=== PATIENT | female | born 1960 | race Caucasian/White ===

== ENCOUNTER 2020-08-14 14:23 | Emergency (ER) | payer BC, SELFPAY ==
[2020-08-14 14:35] VITALS: BP 136/71; PULSE 69; RESP 20; O2SAT 99; BMI 33.8
--- NOTE | 2020-08-14 14:43 | HMH.EDUTC ---
[facility] [place] Disposition Clinical Impression: Viral syndrome Disposition: Home, Self-Care Condition on Discharge: Good Instructions: Preventing the Spread of Coronavirus Discharge Instructions Additional Instructions: Drink plenty of fluids. Take tylenol for pain or fever. Take the medications as directed. Follow up with your regular doctor. GO TO THE ER FOR ANY WORSENING SYMPTOMS The cough medication (promethazine dm) will make you drowsy, so don't drive or operate heavy machinery after taking it. Prescriptions: Promethazine/Dextromethorphan [Promethazine-Dm Syrup] 5 ml PO Q6HP PRN #240 syrup PRN Reason: Cough Transmission Status: Re[id number] Fluconazole [Diflucan 150mg tab] 150 mg PO ONCE #1 tab Transmission Status: Re[facility] by [id number] Azithromycin [Z-Donta 250mg Tab*] 250 mg PO UD DOSE PK #6 tab Transmission Status: Received by [id number] Referrals: Chapis Pace [Primary Care Provider] - Forms: Work/School Release Time of Disposition: 14:55 Medical Decision Making - Medical Records Medical records reviewed: No: I reviewed the patient's medical records. - Vic Inquiry Pt receiving controlled substance: No Vital Signs: 08/14/20 14:35 08/14/20 15:12 Temperature 98.1 F Temperature Source Oral Pulse Rate 69 Pulse Rate [Radial] 69 Respiratory Rate 20 20 Blood Pressure 136/71 Blood Pressure [Right Arm] 136/71 Blood Pressure Mean [Right Arm] 92 Blood Pressure Source Automatic Cuff Blood Pressure Source [Right Arm] Automatic Cuff Blood Pressure Position Sitting Blood Pressure Position [Right Arm] Sitting 02 Sat by Pulse Oximetry 99 Oxygen Delivery Method Room Air Room Air - Lab Data Lab Results 08/14/20 14:36: Strep Scn Rapid Clinic Negative 08/14/20 14:40: Chlamy pneumoniae PCR Not detected, Adenovirus (PCR) Not detected, B. pertussis DNA (PCR) Not detected, Coronavirus OC43 (PCR) Not detected, Coronavirus HKU1 (PCR) Not detected, Coronavirus 229E (PCR) Not detected, SARS-CoV-2 (PCR) Not detected, Coronavirus NL63 (PCR) Not detected, Human Metapneumovir PCR Not detected, Influenza A (H1) PCR Not detected, Influ A (H1N1/09) PCR Not detected, Influenza A (H3) PCR Not detected, Influenza Type A (PCR) Not detected, Influenza Type B (PCR) Not detected, M. pneumoniae (PCR) Not detected, Parainfluenza 1 (PCR) Not detected, Parainfluenza 2 (PCR) Not detected, Parainfluenza 3 (PCR) Not detected, Parainfluenza 4 (PCR) Not detected, RSV (PCR) Not detected, Entero/Rhino (PCR) Detected A 08/14/20 14:51: Influenza Type A Ag Negative, Influenza Type B Ag Negative Orders (Tests/Meds): ORDERS Category Date Time Status Strep Screen Confirmation Stat Micro 08/14/20 14:36 Received [facility] [place] HPI - General Stated complaint: fever,cough,SOA Time Seen by Provider: 08/14/20 14:43 Mode of Arrival: Ambulatory Source of Information: Patient Limitations: No Limitations Description of Symptoms (Recalled from Triage Doc. by RN): MORIN, sore throat, cough, sinus drainage, body aches. HEENT Symptoms (Recalled from RN notes): Yes Resp Symptoms (Recalled from RN notes): No Skin Symptoms (Recalled from RN notes): No MS Symptoms (Recalled from RN notes): No Functional Status (Recalled from RN notes): wnl - History of Present Illness Provider Complaint: She c/o 3 days of cough, chest congestion, sore throat. She tested negative for covid when her symptoms began. - Related Data Previous Rx's Medication Instructions Recorded Azithromycin [Z-Donta 250mg Tab*] 250 mg PO UD DOSE PK #6 tab 08/14/20 Fluconazole [Diflucan 150mg tab] 150 mg PO ONCE #1 tab 08/14/20 Promethazine/Dextromethorphan 5 ml PO Q6HP PRN #240 syrup 08/14/20 [Promethazine-Dm Syrup] Allergies Allergy/AdvReac Type Severity Reaction Status Date / Time codeine Allergy Verified 08/14/20 14:41 - Worker's Comp Is this a Worker's Comp case?: No [facility] History - Hepatiti
[2020-08-14 15:12] VITALS: BP 136/71; PULSE 69; RESP 20; TEMP 36.7; O2SAT 99
[2020-08-14 23:22] LABS: Adenovirus,PCR Not Detected (NotDetected); Bordetella Pertussis Not Detected (NotDetected); Chlamydophila Pneumoniae, PCR Not Detected (NotDetected); Coronavirus 19, PCR Not Detected (NotDetected); Coronavirus 229E Not Detected (NotDetected); Coronavirus NL63 Not Detected (NotDetected); Coronavirus OC43 Not Detected (NotDetected); Coronovirus HKU1,PCR Not Detected (NotDetected); Human Metapneumovirus Not Detected (NotDetected); Influenza A, PCR Not Detected (NotDetected); Influenza AH1, 2009 Not Detected (NotDetected); Influenza AH1, PCR Not Detected (NotDetected); Influenza AH3,PCR Not Detected (NotDetected); Influenza B, PCR Not Detected (NotDetected); Mycoplasma Pneumoniae, PCR Not Detected (NotDetected); Parainfluenza 1, PCR Not Detected (NotDetected); Parainfluenza 2, PCR Not Detected (NotDetected); Parainfluenza 3, PCR Not Detected (NotDetected); Parainfluenza 4, PCR Not Detected (NotDetected); Respiratory Syncytial Virus Not Detected (NotDetected)
[2020-08-15 00:52] LABS: Rhinovirus/Enterovirus Detected (NotDetected)
[2020-08-15 09:58] LABS: UTC Strep Screen (Rapid) Negative (Negative)
[2020-08-15 09:59] LABS: UTC Influenza A Antigen Negative (Negative); UTC Influenza B Antigen Negative (Negative)
== END 2020-08-14 15:13 | disposition home or self-care (01) ==
PROVIDERS: Emergency Provider Nurse Practitioner Family; PCP Family Medicine
DX: B34.9 Viral infection, unspecified (principal)
CPT/HCPCS: 87581; 87633; 87798; 87804; 87880; 99202; U0003

== ENCOUNTER 2021-01-14 12:32 | Emergency (ER) | payer BC, SELFPAY ==
[2021-01-14 12:45] VITALS: BP 154/94; PULSE 85; RESP 20; TEMP 36.6; O2SAT 96; BMI 36.3
[2021-01-14 13:33] LABS: UTC Influenza A Antigen Negative (Negative); UTC Influenza B Antigen Negative (Negative); UTC Strep Screen (Rapid) Negative (Negative)
--- NOTE | 2021-01-14 13:39 | HMH.EDUTC ---
[facility] [place] Disposition Clinical Impression: Bronchitis Sinusitis Qualifiers: Sinusitis location: unspecified location Chronicity: unspecified Qualified Code(s): J32.9 - Chronic sinusitis, unspecified Disposition: Home, Self-Care Condition on Discharge: Good Instructions: Sinusitis, Acute Bronchitis, DI for Sinusitis, Amoxicillin and Clavulanic Acid Additional Instructions: *Monitor Temp, Over the counter Motrin or Tylenol as directed/as needed Tylenol every 4 hours and Motrin every 6 hours (as long as your family doctor has told you that you can take it) for fever or pain. and straight to ER if unable to lower temp less than 101.0 after medication given *Warm salt water gargles may help to soothe the throat *Throat Lozenges *Warm fluids like tea with honey may help to soothe the throat *Sleep elevated *Humidifier/Vaporizer *Flonase 2 sprays in each nostril daily but be aware that it may take 2-3 days before you notice improvement Your throat swab was sent for culture. Those results are typically sent to your primary care. Be sure to follow up in 2-3 days with your family doctor/primary care physician if no improvement so they can review those result and treat if necessary. If you don?t have a primary care doctor, I recommend you get one but in the mean time, you will have to return to a walk in clinic Follow up IMMEDIATELY for new or worsening symptoms or no Noticeable improvement over the next 48-72 hours. 911 for difficulty breathing or swallowing You were tested for today for COVID19 your test result should be back in the next 24-48 hours, you may call to the [facility] to see if your test results are back in the next 48 hours [phone] [facility] hours are 9am-9pm You was given a handout with instructions for Self Quarantine and Self isolation for while you wait on test results and what to do if they are positive If you are positive the Health Dept will be contacting you also Prescriptions: Amoxicillin/Potassium Clav [Augmentin 875-125 Tablet] 1 tab PO Q12H 7 Days #14 tab Transmission Status: [id number] predniSONE [Deltasone 10mg tablet] 10 mg PO BID 5 Days #10 tab Transmission Status: Re[id number] Fluconazole [Diflucan 150mg tab] 150 mg PO ONCE #2 tab Transmission Status: Re[id number] Fluticasone Propionate [Flonase 50mcg nasal spray 16gm] 1 spr NS DAILY #1 bottle Transmission Status: Received by [id number] Benzonatate [Tessalon Perle 100mg Cap*] 100 mg PO TID PRN #30 cap PRN Reason: Cough Transmission Status: Received [id number] Referrals: Chapis Pace [Primary Care Provider] - As needed Forms: Work/School Release Medical Decision Making - Vic Inquiry Pt receiving controlled substance: No Vic was queried for this patient: No Vital Signs: 01/14/21 12:45 01/14/21 13:55 Temperature 97.8 F 97.8 F Temperature Source Oral Pulse Rate 85 Pulse Rate [Left Brachial] 85 Respiratory Rate 20 20 Blood Pressure 154/94 H Blood Pressure [Left Arm] 154/94 H Blood Pressure Mean [Left Arm] 114 Blood Pressure Source [Left Arm] Automatic Cuff Blood Pressure Position [Left Arm] Sitting 02 Sat by Pulse Oximetry 96 Oxygen Delivery Method Room Air - Lab Data Lab results reviewed: Yes: I reviewed the patient's lab results. Lab Results 01/14/21 12:55: Influenza Type A Ag Negative, Influenza Type B Ag Negative 01/14/21 12:55: Strep Scn Rapid Clinic Negative Orders (Tests/Meds): ORDERS Category Date Time Status Covid-19 Nasal PCR ([facility]) Routine Lab 01/14/21 13:40 Received Strep Screen Confirmation Stat Micro 01/14/21 12:55 Received Medical Decision Narrative: Patient states that she has taken augmentin and prednisone in the past without reactions or complications [facility] [place] HPI - General Stated complaint: sore throat,cough,diarrhea Time Seen by Provider: 01/14/21 13:39 Mode of Arrival: Ambulatory Source of [employer]
[2021-01-14 13:55] VITALS: BP 154/94; PULSE 85; RESP 20; TEMP 36.6; O2SAT 96
== END 2021-01-14 13:56 | disposition home or self-care (01) ==
PROVIDERS: Emergency Provider Nurse Practitioner; PCP Family Medicine
DX: Z20.822 Contact with and (suspected) exposure to COVID-19 (principal); J20.9 Acute bronchitis, unspecified; J32.9 Chronic sinusitis, unspecified; E78.5 Hyperlipidemia, unspecified; Z79.899 Other long term (current) drug therapy; Z88.5 Allergy status to narcotic agent
CPT/HCPCS: 87804; 87880; 99202; G0463; U0003

== ENCOUNTER → 2021-02-18 15:59 | Outpatient (POV) | payer BC, SELFPAY | PROVIDERS: Visit Provider Dermatology | DX: Z00.00 Encounter for general adult medical examination without abnormal findings (principal) ==

== ENCOUNTER 2022-03-26 17:36 | Emergency (ER) | payer BC, SELFPAY ==
[2022-03-26 17:38] VITALS: BP 164/80; PULSE 95; RESP 18; O2SAT 99; BMI 36.4
--- NOTE | 2022-03-26 17:44 | ECG_ITS ---
APPROVED REPORT Exam: Resting ECG HR:94 bpm ECG Measurements Heart Rate 94 AXES NV 176 P 65 QRSd 88 QRS 66 QT 349 T 53 QTc 401 Conclusion SINUS RHYTHM NORMAL ECG UNCONFIRMED REPORT Electronically signed by : Calvin Marte MD 03/27/2022 17:31:50
--- NOTE | 2022-03-26 17:52 | PC.NURSE ---
POOJA VEGA at
--- NOTE | 2022-03-26 17:58 | XR_ITS ---
PROCEDURE INFORMATION: Exam: XR Chest Exam date and time: 03/26/22 06:20 PM Age: 61 years old Clinical indication: Other: Palpitations; Additional info: Palpitations, nonsmoker. No prior chest surgery TECHNIQUE: Imaging protocol: Radiologic exam of the chest. Views: 1 view. COMPARISON: No relevant prior studies available. FINDINGS: Lungs: Unremarkable. No consolidation. Pleural spaces: Unremarkable. No pleural effusion. No pneumothorax. Heart/Mediastinum: Unremarkable. No cardiomegaly. Bones/joints: Unremarkable. IMPRESSION: No acute findings.
[2022-03-26 18:01] VITALS: BP 128/78; PULSE 88; RESP 14; O2SAT 98
--- NOTE | 2022-03-26 18:02 | HMH.EDARPALP ---
ED Disposition Clinical Impression: Palpitations Disposition: Home, Self-Care Condition on Discharge: Good Instructions: DI for Arrhythmias, DI for Palpitations Additional Instructions: follow up cardiology, return for worse Referrals: Chapis Pace [Primary Care Provider] - - Critical Care Critical Care Time: No Attestation: On 03/26/22, the high probability of a clinically significant, sudden or life threatening deterioration of the following system(s) required my full and direct attention, intervention and personal management. The time I documented below is in addition to time spent performing reported procedures but includes the following listed in this critical care notation. Medical Decision Making - Medical Records Medical records reviewed: Yes: I reviewed the patient's medical records. - Vic Inquiry Pt receiving controlled substance: No Vital Signs: 03/26/22 17:38 03/26/22 18:01 03/26/22 18:32 Pulse Rate 88 80 Pulse Rate [Brachial] 95 H Respiratory Rate 18 14 17 Blood Pressure 128/78 113/69 Blood Pressure [Right Arm] 164/80 H Blood Pressure Mean 94 83 Blood Pressure Mean [Right Arm] 108 Blood Pressure Source [Right Arm] Automatic Cuff Blood Pressure Position [Right Arm] Sitting 02 Sat by Pulse Oximetry 99 98 98 - Lab Data Lab Results 03/26/22 17:58: WBC 9.4, RBC 4.54, Hgb 13.7, Hct 42.5, MCV 93.6, MCH 30.2, MCHC 32.3, RDW 13.8, Plt Count 325, MPV 7.9, Neut % (Auto) 65.0, Lymph % (Auto) 26.0, [place] % (Auto) 5.4, Eos % (Auto) 2.4, Baso % (Auto) 1.3, Neut # (Auto) 6.1, Lymph # (Auto) 2.4, [place] # (Auto) 0.5, Eos # (Auto) 0.2, Baso # (Auto) 0.1 03/26/22 17:58: Sodium 139, Potassium 3.9, Chloride 104, Carbon Dioxide 30, Anion Gap 8.9, BUN 13, Creatinine 0.90, Estimated Creat Clear 94, Estimated GFR 63, Est GFR ( Amer) 77, Glucose 103 H, Calcium 9.5, Total Bilirubin 0.3, Direct Bilirubin 0.1, Conjugated Bilirubin 0.0, Indirect Bilirubin 0.2, Unconjugated Bilirubin 0.2, AST 29, ALT 19, Alkaline Phosphatase 70, Troponin I < 0.01, Total Protein 7.4, Albumin 4.3 Result diagrams: 03/26/22 17:58 03/26/22 17:58 Orders (Tests/Meds): ED MEDICATIONS Generic Name Dose Route Start Last Admin Trade Name Emy PRN Reason Stop Dose Admin Sodium Chloride 10 ml 03/26/22 17:58 Sodium Chloride 0.9% 10ml Flush Syringe IV 04/25/22 17:57 NEEDED PRN Maintain IV Site ORDERS Category Date Time Status Chest XR -- portable [XR chest portable] Stat Exams 03/26/22 17:58 Taken Troponin I Q3H Lab 03/26/22 21:00 Ordered Troponin I Q3H Lab 03/27/22 00:00 Ordered - ECG Data Tracing #1 I reviewed this ECG and interpreted as documented below: ekg by me nsr, qrs nml, non spec st change - Reevaluation(s) Time: 19:01 (reeval, asymptomatic here, ok with plan to f/u cardiology) Arrhythmia/Palpitations HPI - General Chief Complaint: Arrhythmia/Palpitations Stated Complaint: having pvc's Time Seen by Provider: 03/26/22 18:02 Mode of Arrival: Ambulatory Limitations: No Limitations - History of Present Illness HPI narrative: palpitations, concern for PAC/PVC's, 2 days intermittent, unknown cause Onset (ago): day(s) Duration: intermittent Severity: mild Associated symptoms: denies other symptoms - Related Data Home Medications Medication Instructions Recorded Confirmed Estradiol [Jagruti] 1 each TD WEEKLY 01/14/21 01/14/21 Gabapentin [Gabapentin 100mg Cap] 100 mg PO BID 01/14/21 01/14/21 Krill/Om3/Dha/Epa/Om6/Lip/Astx 1 each PO DAILY 01/14/21 01/14/21 [Krill Oil 1,000 mg Softgel] Rosuvastatin Calcium [Crestor 10mg 10 mg PO HS 01/14/21 01/14/21 Tablets] Tramadol HCl [Tramadol 50mg 50 mg PO HS 01/14/21 01/14/21 Tab] Previous Rx's Medication Instructions Recorded Amoxicillin/Potassium Clav 1 tab PO Q12H 7 Days #14 tab 01/14/21 [Augmentin 875-125 Tablet] Benzonatate [Tessalon Perle 100mg 100 mg PO TID PRN #30 cap 01/14/
[2022-03-26 18:06] LABS: Basophils # 0.1 K/mm3 (0-0.2); Basophils % 1.3 % (0.1-2.0); Eosinophils # 0.2 K/mm3 (0.0-0.4); Eosinophils % 2.4 % (0.1-12.0); Hematocrit 42.5 % (37.0-47.0); Hemoglobin 13.7 g/dL (12.2-16.2); Lymphocytes # 2.4 K/mm3 (0.7-4.5); Mean Corpuscular HGB Conc 32.3 g/dL (31.8-35.4); Mean Corpuscular Hemoglobin 30.2 pg (27.0-31.2); Mean Corpuscular Volume 93.6 fl (81-99); Mean Platelet Volume 7.9 fl (7.4-10.4); Monocytes # 0.5 K/mm3 (0.1-1.0); Monocytes % 5.4 % (1.7-9.3); Neutrophils # 6.1 K/mm3 (1.8-7.8); Platelet Count 325 K/mm3 (142-424); Red Blood Count 4.54 M/mm3 (4.20-5.40); Red Cell Distribution Width 13.8 % (11.5-17.5); White Blood Count 9.4 K/mm3 (4.8-10.8)
[2022-03-26 18:22] LABS: Chloride 104 mmol/L (98-107); Potassium 3.9 mmoL/L (3.5-5.1); Sodium 139 mmol/L (136-145)
[2022-03-26 18:24] LABS: Alanine Aminotransferase 19 U/L (12-78); Aspartate Amino Transferase 29 U/L (14-36); Bilirubin,Unconjugated 0.2 mg/dL (0.0-1.1); Blood Urea Nitrogen 13 mg/dl (7-17); Creatinine Clearance Estimated 94 mL/min (50-200); Estimated Glomerular Filt Rate 63 ml/min (>60); GFR (African American) 77 ML/MIN (>60)
[2022-03-26 18:25] LABS: Albumin Level 4.3 g/dl (3.5-5.0); Alkaline Phosphatase 70 U/L (38-126); Anion Gap 8.9 mEq/L (5-15); Bilirubin,Direct 0.1 mg/dl (0.0-0.4); Bilirubin,Indirect 0.2 mg/dL (0.0-0.9); Bilirubin,Total 0.3 mg/dl (0.2-1.3); Calcium 9.5 mg/dl (8.4-10.2); Carbon Dioxide 30 mmol/L (22.0-30.0); Glucose 103 mg/dl (74-100); Total Protein,Serum 7.4 g/dl (6.3-8.2)
[2022-03-26 18:32] VITALS: BP 113/69; PULSE 80; RESP 17; O2SAT 98
[2022-03-26 18:38] LABS: Troponin I < 0.01 ng/ml (0.00-0.034)
--- NOTE | 2022-03-26 18:40 | PC.NURSE ---
family at bedside. pt and family updated on plan of care
[2022-03-26 19:10] VITALS: BP 120/77; PULSE 80; RESP 18; TEMP 36.7
== END 2022-03-26 19:10 | disposition home or self-care (01) ==
PROVIDERS: Emergency Provider Emergency Medicine; PCP Family Medicine
DX: R00.2 Palpitations (principal); Z88.6 Allergy status to analgesic agent
CPT/HCPCS: 71045; 80048; 80076; 84484; 85025; 93005; 99283

== ENCOUNTER 2022-07-06 08:31 | Emergency (ER) | payer BC, SELFPAY ==
[2022-07-06 08:50] VITALS: BP 140/85; PULSE 91; RESP 18; TEMP 36.7; O2SAT 96; BMI 34.7
--- NOTE | 2022-07-06 08:52 | EXP.UTC ---
Discharge Plan Disposition Patient Disposition: Home, Self-Care Condition: Good Prescriptions Prescriptions: New azithromycin [Zithromax] 250 mg tablet 250 mg PO UD DOSE PK Qty: 6 0RF Rx Instructions: Take two (2) tablets today, then one (1) tablet days #2 thru #5 benzonatate [benzonatate] 100 mg capsule 100 mg PO TIDP PRN (Reason: Cough) Qty: 30 0RF guaifenesin [Mucinex] 600 mg tablet extended release 12hr 600 - 1,200 mg PO BIDP PRN (Reason: Congestion) Qty: 30 0RF fluconazole [Diflucan] 150 mg tablet 150 mg PO ONCE Qty: 1 2RF No Action estradiol 1 EACH patch semiweekly 1 each TD WEEKLY tramadol 50 MG tablet 50 mg PO HS gabapentin 100 MG capsule 100 mg PO BID rosuvastatin 10 MG tablet 10 mg PO HS [id number] 1 EACH capsule 1 each PO DAILY prednisone 10 MG tablet 10 mg PO BID 5 Days Qty: 10 0RF fluconazole 150 MG tablet 150 mg PO ONCE Qty: 2 0RF Rx Instructions: Take one tablet now and may repeat in 72hrs if still having symptoms benzonatate 100 MG capsule 100 mg PO TID PRN (Reason: Cough) Qty: 30 0RF fluticasone propionate 120 SPR/BOT bottle 1 spr NS DAILY Qty: 1 0RF Rx Instructions: each nostril daily amoxicillin-pot clavulanate 1 EACH tablet 1 tab PO Q12H 7 Days Qty: 14 0RF Referrals Follow up/Referrals: Chapis Pace [Primary Care Provider] - See instructions Activity Restrictions/Add. Instructions Additional Instructions/Restrictions: Drink plenty of fluids. Take tylenol or ibuprofen for pain or fever. Take the medications as directed. Follow up with your regular doctor. GO TO THE ER FOR ANY WORSENING SYMPTOMS Don't start the oral steroids until tomorrow, since you had the shot here today. Clinical Impressions Clinical Impression: Sinusitis, Bronchitis Instructions Patient Instructions: Sinusitis, Acute Bronchitis, DI for Sinusitis Discharge ED Provider: Jaya Rausch [facility] [place] HPI General Stated complaint: congestion Time Seen by Provider: 07/06/22 08:52 History of Present Illness Provider Complaint: She states that for the past 1 week she has had worsening chest and sinus congestion. She had negative covid-19 tests. She is here for further evaluation. She denies any shortness of breath. Related Data Home Medications Medication Instructions Recorded Confirmed estradiol 0.05 mg/24 hr semiweekly 1 each TD WEEKLY Supplement 01/14/21 01/14/21 transdermal patch gabapentin 100 mg capsule 100 mg PO BID Arthritis 01/14/21 01/14/21 krill oil 1,000 mg-om3 130 mg-dha 1 each PO DAILY Cholesterol 01/14/21 01/14/21 40 mg-epa 80 mg-sw6-ovv-astax cap rosuvastatin 10 mg tablet 10 mg PO HS Cholesterol 01/14/21 01/14/21 tramadol 50 mg tablet 50 mg PO HS Arthritis 01/14/21 01/14/21 Previous Rx's Medication Instructions Recorded amoxicillin 875 mg-potassium 1 tab PO Q12H 7 days #14 tabs 01/14/21 clavulanate 125 mg tablet benzonatate 100 mg capsule 100 mg PO TID PRN Cough #30 caps 01/14/21 fluconazole 150 mg tablet 150 mg PO ONCE #2 tabs 01/14/21 fluticasone propionate 50 1 spr NS DAILY ##1 01/14/21 mcg/actuation nasal spray,suspension prednisone 10 mg tablet 10 mg PO BID 5 days #10 tabs 01/14/21 azithromycin 250 mg tablet 250 mg PO UD DOSE PK #6 tabs 07/06/22 (Zithromax) benzonatate 100 mg capsule 100 mg PO TIDP PRN Cough #30 caps 07/06/22 fluconazole 150 mg tablet 150 mg PO ONCE #1 tab 07/06/22 (Diflucan) guaifenesin 600 mg tablet, 600 - 1,200 mg PO BIDP PRN 07/06/22 extended release 12 hr (Mucinex) Congestion #30 tabs Allergies Allergy/AdvReac Type Severity Reaction Status Date / Time codeine Allergy Verified 08/14/20 14:41 [facility] Medical History History of gastroesophageal reflux (GERD) Hyperlipidemia Kidney stone Sexually transmitted disease (STD) Surgical History (Reviewed
[2022-07-06 09:20] LABS: UTC Strep Screen (Rapid) Negative (Negative)
[2022-07-06 09:30] VITALS: BP 140/85; PULSE 91; RESP 18; TEMP 36.7; O2SAT 96
== END 2022-07-06 09:38 | disposition home or self-care (01) ==
PROVIDERS: Emergency Provider Nurse Practitioner Family; PCP Family Medicine
DX: R50.9 Fever, unspecified (principal); R09.89 Other specified symptoms and signs involving the circulatory and respiratory systems; R11.0 Nausea; Z20.822 Contact with and (suspected) exposure to COVID-19; K21.9 Gastro-esophageal reflux disease without esophagitis; E78.5 Hyperlipidemia, unspecified; M19.90 Unspecified osteoarthritis, unspecified site; Z79.1 Long term (current) use of non-steroidal anti-inflammatories (NSAID); Z79.52 Long term (current) use of systemic steroids; Z79.890 Hormone replacement therapy; Z79.899 Other long term (current) drug therapy; Z87.442 Personal history of urinary calculi; Z98.84 Bariatric surgery status
CPT/HCPCS: 87880; 96372; 99213; G0463; J0696

== ENCOUNTER 2024-07-20 17:51 | Emergency (ER) | payer BC, SELFPAY ==
[2024-07-20 19:05] LABS: Microscopic, Urine URINE MICROSCOPIC (MICROSCOPIC)
[2024-07-20 19:08] LABS: Appearance,Urine CLEAR (Clear); Bilirubin,Urine Negative (Negative); Blood, Urine TRACE-I (Negative); Color,Urine YELLOW (Yellow); Glucose,Urine (UA) Negative (Negative); Ketones,Urine Negative (Negative); Leukocyte Esterase,Urine 3+ (Negative); Nitrate,Urine Negative (Negative); Protein,Urine Negative (Negative); Specific Gravity, Urine 1.015 (1.005-1.030); Urobilinogen,Urine 0.2 EU/dl (0.2)
[2024-07-20 19:30] VITALS: BP 115/61; PULSE 77; RESP 17; TEMP 36.6; O2SAT 99; BMI 31.9
[2024-07-20 19:35] LABS: Bacteria,Urine 4+ /lpf; WBC,Urine TNTC #/hpf (0-3)
--- NOTE | 2024-07-20 19:49 | EXP.UTC ---
Discharge Plan Disposition Patient Disposition: Home, Self-Care Condition: Good Prescriptions Prescriptions: New cefdinir 300 mg capsule 300 mg PO BID Qty: 20 0RF phenazopyridine [Pyridium] 200 mg tablet 200 mg PO Q8H 2 Days Qty: 6 0RF fluconazole 150 mg tablet 150 mg PO Q3D Qty: 2 0RF Rx Instructions: Take one tablet and may repeat in 72 hours if still having symptoms No Action estradiol 1 EACH patch semiweekly 1 each TD WEEKLY tramadol 50 MG tablet 50 mg PO HS gabapentin 100 MG capsule 100 mg PO BID rosuvastatin 10 MG tablet 10 mg PO HS pramipexole 0.125 mg tablet 1 mg PO DAILY Referrals Follow up/Referrals: Chapis Pace [Primary Care Provider] - See instructions Activity Restrictions/Add. Instructions Additional Instructions/Restrictions: *Increase fluids. Water not Soda or Tea *Start antibiotic immediately and be sure to take as ordered for the FULL length of time although you should start to see improvement over the next 48 hours *Pyridium as needed Remember this medication will turn your urine . This is normal but it will stain what ever it gets on *You should not use Pyridium for more than 48 hours. If so , follow up with your primary physician to review urine culture and ensure that antibiotic is adequate for infection *Be SURE to follow up anytime for new or worsening symptoms with your family doctor. AND in 48 hours for urine culture results with your family doctor, if you do not have a doctor then you may call back to the [facility] for urine culture results and further treatment. We do recommend that you choose and establish care with a Primary Care Physician. ?AND follow up with them ?in 10-14 days to repeat UA to ensure infection is resolved and blood no longer present *Be sure to let your PCP know that we sent urine cultures from the [facility] so they can follow up to ensure that you area the on the correct antibiotic Call your doctor office and make appointment for 48 hours (2 days from today) ?to follow up and get the results of your urine culture and further treatment Clinical Impressions Clinical Impression: UTI (urinary tract infection) Instructions Patient Instructions: DI for Urinary Tract Infection (UTI), Cefdinir, Phenazopyridine Print Language Print Language: Pashto Discharge ED Provider: Lauren Pineda [facility] [place] General Stated complaint: Urgency,frequency with pain Mode of Arrival: Ambulatory Source of Information: Patient Limitations: No Limitations Time Seen by Provider: 07/20/24 19:49 Description of Symptoms (Recalled from Triage Doc. by RN): PATIENT C/O URGENCY AND FREQUENCY WITH URINATION, LOWER BACK PAIN, AND FOUL SMELLING URINE X 5 DAYS HEENT Symptoms (Recalled from RN notes): No Resp Symptoms (Recalled from RN notes): No Skin Symptoms (Recalled from RN notes): No MS Symptoms (Recalled from RN notes): No Functional Status (Recalled from RN notes): WNL History of Present Illness Provider Complaint: Patient states that for the last 5 days she has been having dark foul smelling urine, urgency frequency and achy like feeling in her lower back that has continued to get worse so tonight when it was still bothering her she came in to get checked Related Data Home Medications ?Medication ?Instructions ?Recorded ?Confirmed estradiol 0.05 mg/24 hr semiweekly 1 each TD WEEKLY Supplement 01/14/21 07/20/24 transdermal patch gabapentin 100 mg capsule 100 mg PO BID Arthritis 01/14/21 07/20/24 rosuvastatin 10 mg tablet 10 mg PO HS Cholesterol 01/14/21 07/20/24 tramadol 50 mg tablet 50 mg PO HS Arthritis 01/14/21 07/20/24 pramipexole 0.125 mg tablet 1 mg PO DAILY 07/20/24 07/20/24 Previous Rx's ?Medication ?Instructions ?Recorded cefdinir 300 mg capsule 300 mg PO BID #20 caps 07/20/24 fluconazole 150 mg tablet 150 mg PO Q3D 2 doses #2 tabs 07/20/24 phenazopyridine 200 mg tablet 200 mg PO Q8H pain 2 days #6 tabs 07/20/24 (Pyridium) Allergies Allergy/AdvReac Type Severity Reaction Status Date / Time codeine Allergy Verified 08/14/20 14:41 Worker's Comp Is this a Worker's Comp case?: No [facility] Disclaimer: The information contained in this section may have been updated after the patient was seen, as this information can be updated by other users. Medical History History of gastroesophageal reflux (GERD) Hyperlipidemia Kidney stone Sexually transmitted disease (STD) Surgical History History of appendectomy History of section History of cholecystectomy History of hysterectomy History of tonsillectomy Hx of laparoscopic gastric banding Social History (Updated 07/07/22 @ 23:31 by Jaya Rausch APRN) Smoking Status: Never smoker alcohol intake: never current occupational status: other Travel in the last 8 weeks: None ROS Obtained: Yes All systems reviewed & no additional complaints except as documented and Yes Systems reviewed as appropriate & no additional complaints except as documented Constitutional Constitutional: Reports system reviewed and no additional complaints, except as documented, Reports as per HPI, Denies body ache, Denies chills and Denies fever(s) ENT Ears, Nose, Mouth, and Throat: Reports system reviewed and no additional complaints, except as documented and Reports as per HPI Cardiovascular Cardiovascular: Reports system reviewed and no additional complaints, except as documented and Reports as per HPI Respiratory Respiratory: Reports system reviewed and no additional complaints, except as documented and Reports as per HPI Gastrointestinal Gastrointestingal: Reports system reviewed and no additional complaints, except as documented and as per HPI; Denies abdominal pain Genitourinary Female Genitourinary: Reports system reviewed and no additional complaints, except as documented, Reports as per HPI, Reports dysuria, Reports flank pain, Reports urinary frequency and Reports urinary urgency Musculoskeletal Musculoskeletal: Reports system reviewed and no additional complaints, except as documented and Reports as per HPI Physical Exam General General appearance: alert and in no apparent distress Eye Eye exam: Present normal appearance, PERRL and EOMI ENT ENT exam: Present mucous membranes moist Neck Neck exam: Present normal inspection, full ROM and trachea midline; Absent tenderness Chest Chest inspection: Present normal inspection and symmetric chest wall rise Respiratory Respiratory exam: Present normal lung sounds bilaterally; Absent respiratory distress or wheezes Cardiovascular Cardiovascular exam: Present regular rate, normal rhythm and normal heart sounds Abdominal Exam Abdominal exam: Present soft and normal bowel sounds; Absent distention or tenderness Neurological Exam Neurological exam: Present alert, oriented X3 and normal gait Medical Decision Making Medical Records Screening: Per USPSTF and CDC recommendations, given the prevalence of disease in our region, it is our hospital?s policy to screen for HIV and viral Hepatitis for all patients aged 18 and over and those with ongoing risk factors. Vic Inquiry Pt receiving controlled substance: No Vic was queried for this patient: No Vital Signs: 07/20/24 19:30 Temperature 97.8 F Temperature Source Oral Pulse Rate [Left Brachial] 77 Respiratory Rate 17 Blood Pressure [Left Arm] 115/61 Blood Pressure Mean [Left Arm] 79 Blood Pressure Source [Left Arm] Automatic Cuff Blood Pressure Position [Left Arm] Sitting 02 Sat by Pulse Oximetry 99 Oxygen Delivery Method Room Air Lab Data Lab results reviewed: Yes I reviewed the patient's lab results. Lab Results 07/20/24 19:00: Urine Color Yellow, Urine Appearance Clear, Urine pH 6.0, Ur Specific [place] 1.015, Urine Protein Negative, Urine Glucose (UA) Negative, Urine Ketones Negative, Urine Blood Trace-i, Urine Nitrate Negative, Urine Bilirubin Negative, Urine Urobilinogen 0.2, Ur Leukocyte Esterase 3+ A, Urine RBC 10-20, Urine WBC Tntc, Ur Squamous Epith Cells 5-10, Urine Bacteria 4+ Orders (Tests/Meds): ORDERS Category Date Time Status Urinalysis and Microscopic Stat Lab 07/20/24 19:00 Completed Urine Culture Stat Micro 07/20/24 19:00 Received
[2024-07-20 20:03] VITALS: BP 115/61; PULSE 77; RESP 17; TEMP 36.6; O2SAT 99
[2024-07-20] MEDS: PHENAZOPYRIDINE 200MG TABLET 200 MG PO (20:07)
[2024-07-20] MEDS: CEFDINIR 300MG CAPSULE 300 MG PO (20:07)
== END 2024-07-20 20:07 | disposition home or self-care (01) ==
PROVIDERS: Emergency Provider Nurse Practitioner; PCP Family Medicine
DX: N39.0 Urinary tract infection, site not specified (principal)
CPT/HCPCS: 81001; 87086; 87088; 87186; 99213; G0381

== ENCOUNTER 2024-09-22 11:39 | Emergency (ER) | payer BC, SELFPAY ==
[2024-09-22 12:25] VITALS: BP 109/76; PULSE 70; RESP 19; TEMP 36.9; O2SAT 98; BMI 32.9
--- NOTE | 2024-09-22 12:44 | ED_ITS ---
Discharge Plan Disposition Patient Disposition: Home, Self-Care Condition: Good Prescriptions Prescriptions: New cephalexin 500 mg capsule 500 mg PO BID 7 Days Qty: 14 0RF fluconazole 150 mg tablet 150 mg PO Q3D Qty: 2 1RF No Action tramadol 50 MG tablet 50 mg PO HS gabapentin 100 MG capsule 100 mg PO BID rosuvastatin 10 MG tablet 10 mg PO HS pramipexole 0.125 mg tablet 1 mg PO DAILY Referrals Follow up/Referrals: Chapis Pace [Primary Care Provider] - See instructions Activity Restrictions/Add. Instructions Additional Instructions/Restrictions: *Monitor Temp, Over the counter Motrin or Tylenol as directed/as needed Tylenol every 4 hours and Motrin every 6 hours (as long as your family doctor has told you that you can take it) for fever or pain. and straight to ER if unable to lower temp less than 101.0 after medication given *Warm salt water gargles may help to soothe the throat *Throat Lozenges? *Warm fluids like tea with honey may help to soothe the throat? *Sleep elevated *Humidifier/Vaporizer Your COVID/FLu test will be back in the next 4 hours Follow up IMMEDIATELY for new or worsening symptoms or no Noticeable improvement over the next 48-72 hours. 911 for difficulty breathing or swallowing Clinical Impressions Clinical Impression: UTI (urinary tract infection) Instructions Patient Instructions: DI for Urinary Tract Infection (UTI), DI for Nasal Congestion Print Language Print Language: Eritrean Discharge ED Provider: Lauren Pineda [facility] General Stated complaint: uti/uri Mode of Arrival: Ambulatory Source of Information: Patient Limitations: No Limitations Time Seen by Provider: 09/22/24 12:44 Description of Symptoms (Recalled from Triage Doc. by RN): PATIENT C/O COUGH, CONGESTION, AND BURNING/FREQUENCY WITH URINATION X 2 DAYS HEENT Symptoms (Recalled from RN notes): Yes Resp Symptoms (Recalled from RN notes): Yes Skin Symptoms (Recalled from RN notes): No MS Symptoms (Recalled from RN notes): No Functional Status (Recalled from RN notes): WNL History of Present Illness Provider Complaint: Patient states that she has been having cough and nasal congestion States that also started with symptoms of UTI like she typically gets when she has one so she came in to get checked and get ahead of it Related Data Home Medications ?Medication ?Instructions ?Recorded ?Confirmed gabapentin 100 mg capsule 100 mg PO BID Arthritis 01/14/21 09/22/24 rosuvastatin 10 mg tablet 10 mg PO HS Cholesterol 01/14/21 09/22/24 tramadol 50 mg tablet 50 mg PO HS Arthritis 01/14/21 09/22/24 pramipexole 0.125 mg tablet 1 mg PO DAILY 07/20/24 09/22/24 Previous Rx's ?Medication ?Instructions ?Recorded cephalexin 500 mg capsule 500 mg PO BID 7 days #14 caps 09/22/24 fluconazole 150 mg tablet 150 mg PO Q3D 2 doses #2 tabs 09/22/24 Allergies Allergy/AdvReac Type Severity Reaction Status Date / Time codeine Allergy Difficulty Verified 09/22/24 12:47 Breathing NSAIDS (Non-Steroidal AdvReac Vomiting Verified 09/22/24 12:47 Anti-Inflamma Worker's Comp Is this a Worker's Comp case?: No [facility] Disclaimer: The information contained in this section may have been updated after the patient was seen, as this information can be updated by other users. Medical History History of gastroesophageal reflux (GERD) Hyperlipidemia Kidney stone Sexually transmitted disease (STD) Surgical History History of appendectomy History of section History of cholecystectomy History of hysterectomy History of tonsillectomy Hx of laparoscopic gastric banding Social History (Updated 07/07/22 @ 23:31 by Jaya Rausch APRN) Smoking Status: Never smoker alcohol intake: never current occupational status: other Travel in the last 8 weeks: None Have you lived/traveled outside [place] in past 30 days?: No Contact w/someone who lives/traveled outside [place] past 30 days?: No Exposure to someone with infectious disease in past 14 days?: No Do you have a fever (greater than 100.4 F or 38 C)?: No Have you tested positive for COVID-19: No Exposed to someone with COVID-19 in past 14 days?: No Do you have a sore throat?: No Do you have a cough?: Yes Do you have any weakness?: No Do you have any diarrhea?: No Are you experiencing any unusual bleeding?: No Do you have any muscle aches/pain?: No Do you have any abdominal pain?: No Are you experiencing loss of taste or smell?: No ROS Obtained: Yes All systems reviewed & no additional complaints except as documented and Yes Systems reviewed as appropriate & no additional complaints except as documented Constitutional Constitutional: Reports system reviewed and no additional complaints, except as documented and Reports as per HPI ENT Ears, Nose, Mouth, and Throat: Reports system reviewed and no additional complaints, except as documented, Reports as per HPI, Reports nasal congestion and Reports nasal discharge Cardiovascular Cardiovascular: Reports system reviewed and no additional complaints, except as documented and Reports as per HPI Respiratory Respiratory: Reports system reviewed and no additional complaints, except as documented, Reports as per HPI, Denies shortness of breath, Denies change in phlegm color and Reports cough Gastrointestinal Gastrointestingal: Reports system reviewed and no additional complaints, except as documented and as per HPI; Denies abdominal pain Genitourinary Female Genitourinary: Reports system reviewed and no additional complaints, except as documented, Reports as per HPI, Reports dysuria, Reports urinary frequency and Reports urinary urgency Physical Exam General General appearance: alert and in no apparent distress ENT ENT exam: Present mucous membranes moist Expanded ENT Exam Nose exam: Present sinus tenderness Throat exam: Present other (PND noted) Respiratory Respiratory exam: Present normal lung sounds bilaterally; Absent respiratory distress or wheezes Cardiovascular Cardiovascular exam: Present regular rate, normal rhythm and normal heart sounds Abdominal Exam Abdominal exam: Present soft and normal bowel sounds; Absent distention or tenderness Neurological Exam Neurological exam: Present alert, oriented X3 and normal gait Medical Decision Making Medical Records Screening: Per USPSTF and CDC recommendations, given the prevalence of disease in our region, it is our hospital?s policy to screen for HIV and viral Hepatitis for all patients aged 18 and over and those with ongoing risk factors. Vic Inquiry Pt receiving controlled substance: No Vic was queried for this patient: No Vital Signs: 09/22/24 12:25 Temperature 98.4 F Temperature Source Oral Pulse Rate [Left Brachial] 70 Respiratory Rate 19 Blood Pressure [Left Arm] 109/76 L Blood Pressure Mean [Left Arm] 87 Blood Pressure Source [Left Arm] Automatic Cuff Blood Pressure Position [Left Arm] Sitting 02 Sat by Pulse Oximetry 98 Oxygen Delivery Method Room Air Lab Data Lab results reviewed: Yes I reviewed the patient's lab results.
[2024-09-22 12:54] LABS: Color,Urine Yellow (Yellow)
[2024-09-22 12:55] LABS: Apearance,Urine Cloudy (Clear); Bilirubin,Urine Negative (Negative); Blood, Urine Trace (Negative); Glucose,Urine (UA) Negative (Negative); Ketones,Urine Negative (Negative); Protein,Urine Negative (Negative); UTC Leukocyte Esterase,Urine Trace (Negative); UTC Nitrate,Urine Negative (Negative); Urobilinogen,Urine 0.2 EU/dl (0.2)
[2024-09-22 13:10] VITALS: BP 109/76; PULSE 70; RESP 19; TEMP 36.9; O2SAT 98
[2024-09-22 13:18] LABS: Coronavirus 19, PCR Not Detected (NotDetected); Influenza A, PCR Not Detected (NotDetected); Influenza B, PCR Not Detected (NotDetected)
== END 2024-09-22 13:14 | disposition home or self-care (01) ==
PROVIDERS: Emergency Provider Nurse Practitioner; PCP Family Medicine
DX: N39.0 Urinary tract infection, site not specified (principal); R05.9 Cough, unspecified; R09.81 Nasal congestion; R35.0 Frequency of micturition
CPT/HCPCS: 81003; 87086; 87088; 87636; 99212; G0381

== ENCOUNTER 2024-09-24 14:56 | Emergency (ER) | payer BC, SELFPAY ==
[2024-09-24 16:20] VITALS: BP 138/63; PULSE 97; RESP 23; TEMP 36.8; O2SAT 97; BMI 32.9
--- NOTE | 2024-09-24 16:40 | EXP.UTC ---
Discharge Plan Disposition Patient Disposition: Home, Self-Care Condition: Good Prescriptions Prescriptions: New albuterol sulfate 90 mcg/actuation HFA aerosol inhaler 2 puff inhalation Q4-6H PRN (Reason: shortness of breath or wheezing) Qty: 8.5 0RF azithromycin [Zithromax Z-Donta] 250 mg tablet See Rx Instructions .ROUTE .COMPLEX 5 Days Qty: 6 0RF Rx Instructions: For 250 mg dose pack: take 500 mg today (day 1), then 250 mg for 4 days (days 2-5) benzonatate 100 mg capsule 100 mg PO TID PRN (Reason: cough) Qty: 30 0RF methylprednisolone [Medrol (Donta)] 4 mg tablets,dose pack See Rx Instructions .Route .COMPLEX 6 Days Qty: 21 0RF Rx Instructions: taper pack; No Action tramadol 50 MG tablet 50 mg PO HS gabapentin 100 MG capsule 100 mg PO BID rosuvastatin 10 MG tablet 10 mg PO HS pramipexole 0.125 mg tablet 1 mg PO DAILY estradiol 0.1 mg/24 hr patch semiweekly 0.1 mg topical WEEKLY Patient Comments: APPLY 1 PATCH TOPICALLY TO THE SKIN 2 TIMES A WEEK omeprazole 40 mg capsule,delayed release(DR/EC) 40 mg PO DAILY Patient Comments: TAKE 1 CAPSULE BY MOUTH DAILY Referrals Follow up/Referrals: Chapis Pace [Primary Care Provider] - See instructions Activity Restrictions/Add. Instructions Additional Instructions/Restrictions: Start antibiotic today. Be sure to complete entire prescription even if feeling better Monitor temp. Tylenol every 4 hours as needed and / or ibuprofen every 6 hours as needed ( As long as your primary care physician has told you that it ok to take both. For fever/aches/pains ER if no less than 101 despite Tylenol or Motrin Humidifier/vaporizer or hot steamy shower Inhaler every 4-6 hours as needed like we discussed. If unsure how to use it, ask pharmacist to demonstrate how. Should help open airways and improve cough, wheezing, and shortness of breath Mucinex during the day for your cough and cough suppressant only at night. Be sure to drink lots of water. *Tessalon Perles will not cause drowsiness but use at bedtime to help stop cough so that you may get some rest. *Start steroid tomorrow Helps with inflammation therefore, cough and wheezing. Follow directions on the package. Reviewed side effects. Patient reports taking them before. Follow up IMMEDIATELY for new or worsening of symptoms OR no noticeable improvement over the next 48-72 hours. 911 immediately for any life threatening symptoms such as chest pain or difficulty breathing Clinical Impressions Clinical Impression: Bronchitis Instructions Patient Instructions: DI for Cough -- Adult, DI for Acute Bronchitis, Azithromycin Print Language Print Language: [place] Discharge ED Provider: Inocencia Castaneda [facility] [place] <Lauren Pineda APRN - Last Filed: 09/24/24 17:04> General Stated complaint: wheezing, cough, SOA Mode of Arrival: Ambulatory Source of Information: Patient Limitations: No Limitations Time Seen by Provider: 09/24/24 16:40 Description of Symptoms (Recalled from Triage Doc. by RN): PATIENT C/O COUGH, SOA WITH EXCESSIVE COUGHING, AND WHEEZING X 4 DAYS HEENT Symptoms (Recalled from RN notes): No Resp Symptoms (Recalled from RN notes): Yes Skin Symptoms (Recalled from RN notes): No MS Symptoms (Recalled from RN notes): No Functional Status (Recalled from RN notes): WNL History of Present Illness Provider Complaint: Patient states that she was seen for UTI on Wednesday, States since then her cough has continued to get worse States that she use to have asthma States not sure if something has triggered it or if she may have Bronchitis or something States that she will cough and at times she coughs so hard she will vomit and feel winded States that she use to have to use inhaler but she doesnt have one Related Data Home Medications ?Medication ?Instructions ?Recorded ?Confirmed gabapentin 100 mg capsule 100 mg PO BID Arthritis 01/14/21 09/24/24 rosuvastatin 10 mg tablet 10 mg PO HS Cholesterol 01/14/21 09/24/24 tramadol 50 mg tablet 50 mg PO HS Arthritis 01/14/21 09/24/24 pramipexole 0.125 mg tablet 1 mg PO DAILY 07/20/24 09/24/24 estradiol 0.1 mg/24 hr semiweekly 0.1 mg topical WEEKLY 09/24/24 09/24/24 transdermal patch omeprazole 40 mg capsule,delayed 40 mg PO DAILY 09/24/24 09/24/24 release Previous Rx's ?Medication ?Instructions ?Recorded albuterol sulfate 90 mcg/actuation 2 puff inhalation Q4-6H PRN 09/24/24 aerosol inhaler shortness of breath or wheezing #8.5 grams azithromycin 250 mg tablet See Rx Instructions PO .COMPLEX 5 09/24/24 (Zithromax Z-Donta) days #6 tabs benzonatate 100 mg capsule 100 mg PO TID PRN cough #30 caps 09/24/24 methylprednisolone 4 mg tablets in See Rx Instructions .Route 09/24/24 a dose pack (Medrol (Donta)) .COMPLEX 6 days #21 tabs Allergies Allergy/AdvReac Type Severity Reaction Status Date / Time codeine Allergy Difficulty Verified 09/22/24 12:47 Breathing NSAIDS (Non-Steroidal AdvReac Vomiting Verified 09/22/24 12:47 Anti-Inflamma Worker's Comp Is this a Worker's Comp case?: No [facility] <Lauren Pineda APRN - Last Filed: 09/24/24 17:04> [facility] Disclaimer: The information contained in this section may have been updated after the patient was seen, as this information can be updated by other users. Medical History History of gastroesophageal reflux (GERD) Hyperlipidemia Kidney stone Sexually transmitted disease (STD) Surgical History History of appendectomy History of section History of cholecystectomy History of hysterectomy History of tonsillectomy Hx of laparoscopic gastric banding Social History (Updated 07/07/22 @ 23:31 by Jaya Rausch APRN) Smoking Status: Never smoker alcohol intake: never current occupational status: other Travel in the last 8 weeks: None Have you lived/traveled outside [place] in past 30 days?: No Contact w/someone who lives/traveled outside [place] past 30 days?: No Exposure to someone with infectious disease in past 14 days?: No Do you have a fever (greater than 100.4 F or 38 C)?: No Have you tested positive for COVID-19: No Exposed to someone with COVID-19 in past 14 days?: No Do you have a sore throat?: No Do you have a cough?: Yes Do you have any weakness?: No Do you have any diarrhea?: No Are you experiencing any unusual bleeding?: No Do you have any muscle aches/pain?: No Do you have any abdominal pain?: No Are you experiencing loss of taste or smell?: No <Lauren Pineda APRN - Last Filed: 09/24/24 17:04> ROS Obtained: Yes All systems reviewed & no additional complaints except as documented and Yes Systems reviewed as appropriate & no additional complaints except as documented Constitutional Constitutional: Reports system reviewed and no additional complaints, except as documented, Reports as per HPI and Reports headache(s) ENT Ears, Nose, Mouth, and Throat: Reports system reviewed and no additional complaints, except as documented, Reports as per HPI, Reports headache(s) and Reports sinus pressure Cardiovascular Cardiovascular: Reports system reviewed and no additional complaints, except as documented and Reports as per HPI Respiratory Respiratory: Reports system reviewed and no additional complaints, except as documented, Reports as per HPI, Reports shortness of breath (after coughing), Reports chest congestion, Reports cough and Reports wheezing (at times) Neurologic Neurologic: Reports headache(s) Allergic/Immunologic Allergic/Immunologic: Reports wheezing (at times) <Inocencia Castaneda, DEVELOPER [employer]ANGEL[employer] - Last Filed: 10/06/24 20:01> Eyes Eyes: Reports system reviewed and no additional complaints, except as documented Gastrointestinal Gastrointestingal: Reports system reviewed and no additional complaints, except as documented Genitourinary Female Genitourinary: Reports system reviewed and no additional complaints, except as documented Musculoskeletal Musculoskeletal: Reports system reviewed and no additional complaints, except as documented Integumentary/Breasts Skin/Breast: Reports system reviewed and no additional complaints, except as documented Neurologic Neurologic: Reports system reviewed and no additional complaints, except as documented Endocrine Endocrine: Reports system reviewed and no additional complaints, except as documented Hematologic/Lymphatic Henatologic/Lymphatic: Reports system reviewed and no additional complaints, except as documented Allergic/Immunologic Allergic/Immunologic: Reports system reviewed and no additional complaints, except as documented Physical Exam <Lauren Pineda DEVELOPER [employer]ANGEL[employer] - Last Filed: 09/24/24 17:04> General General appearance: alert and in no apparent distress ENT ENT exam: Present mucous membranes moist Expanded ENT Exam Nose exam: Present sinus tenderness Throat exam: Present normal inspection and other (PND) Respiratory Respiratory exam: Present normal lung sounds bilaterally; Absent respiratory distress or wheezes Cardiovascular Cardiovascular exam: Present regular rate, normal rhythm and normal heart sounds Neurological Exam Neurological exam: Present alert, oriented X3 and normal gait <Inocencia Castaneda, DEVELOPER [employer]ANGEL[employer] - Last Filed: 10/06/24 20:01> Head Head exam: atraumatic and normocephalic Eye Eye exam: Present normal appearance Medical Decision Making <Lauren Pineda APRN - Last Filed: 09/24/24 17:04> Medical Records Screening: Per USPSTF and CDC recommendations, given the prevalence of disease in our region, it is our hospital?s policy to screen for HIV and viral Hepatitis for all patients aged 18 and over and those with ongoing risk factors. Vic Inquiry Pt receiving controlled substance: No Vic was queried for this patient: No Vital Signs: 09/24/24 16:20 Temperature 98.2 F Temperature Source Oral Pulse Rate [Left Brachial] 97 H Respiratory Rate 23 Blood Pressure [Left Arm] 138/63 Blood Pressure Mean [Left Arm] 88 Blood Pressure Source [Left Arm] Automatic Cuff Blood Pressure Position [Left Arm] Sitting 02 Sat by Pulse Oximetry 97 Oxygen Delivery Method Room Air <Inocencia Castaneda APRN - Last Filed: 10/06/24 20:01> Vital Signs: 09/24/24 16:20 Temperature 98.2 F Temperature Source Oral Pulse Rate [Left Brachial] 97 H Respiratory Rate 23 Blood Pressure [Left Arm] 138/63 Blood Pressure Mean [Left Arm] 88 Blood Pressure Source [Left Arm] Automatic Cuff Blood Pressure Position [Left Arm] Sitting 02 Sat by Pulse Oximetry 97 Oxygen Delivery Method Room Air
[2024-09-24] MEDS: METHYLPREDNISOLONE SOD SUCC 125MG VIAL 125 MG IM (16:55)
[2024-09-24 17:06] VITALS: BP 138/63; PULSE 97; RESP 23; TEMP 36.8; O2SAT 97
== END 2024-09-24 17:07 | disposition home or self-care (01) ==
PROVIDERS: Emergency Provider Nurse Practitioner Family; PCP Family Medicine
DX: J20.9 Acute bronchitis, unspecified (principal)
CPT/HCPCS: 96372; 99213; G0381; J2919